=== PATIENT | female | born 1970 | race Two or more races ===

== ENCOUNTER 2018-01-07 03:32 | Emergency (ER) | payer SELFPAY ==
[2018-01-07 04:00] LABS: ADD MAN DIFF? NO
[2018-01-07] MEDS ORDERED: CONTRAST GIVEN MC (04:00)
[2018-01-07] MEDS: IV NORMAL SALINE 1000ML BAG 1,000 ML IV (04:00)
[2018-01-07] MEDS: ONDANSETRON PF 4 MG/2 ML VIAL. IV (04:00)
[2018-01-07] MEDS: fentaNYL PF VIAL 100 MCG/2 ML VIAL IV (04:00)
[2018-01-07 04:03] LABS: BASO # 0.1 x10^3/uL (0.0-0.2); BASO % 1 % (0-3); EOS # 0.3 x10^3/uL (0.0-0.7); EOS % 6 % (0-3); HEMATOCRIT 26.9 % (36.0-47.0); HEMOGLOBIN 8.5 g/dL (12.0-15.5); LYMPH # 1.6 x10^3/uL (1.0-4.8); LYMPH % 32 % (24-48); MEAN CORPUSCULAR HEMOGLOBIN 20 pg (25-35); MEAN CORPUSCULAR HGB CONC 32 g/dL (31-37); MEAN CORPUSCULAR VOLUME 63 fL (79-100); MONO # 0.5 x10^3/uL (0.0-1.1); MONO % 9 % (0-9); NEUT # 2.5 x10^3uL (1.8-7.7); NEUT % 51 % (31-73); PLATELET COUNT 302 x10^3/uL (140-400); RED BLOOD COUNT 4.28 x10^6/uL (3.50-5.40); RED CELL DISTRIBUTION WIDTH 20.9 % (11.5-14.5); WHITE BLOOD COUNT 4.8 x10^3/uL (4.0-11.0)
[2018-01-07 04:12] LABS: ANION GAP 11 (6-14); BLOOD UREA NITROGEN 9 mg/dL (7-20); BUN/CREATININE RATIO 11 (6-20); CALCIUM 8.7 mg/dL (8.5-10.1); CARBON DIOXIDE 24 mmol/L (21-32); CHLORIDE 105 mmol/L (98-107); CREATININE 0.8 mg/dL (0.6-1.0); GFR 77.6; GLUCOSE 164 mg/dL (70-99); POTASSIUM 3.8 mmol/L (3.5-5.1); SODIUM 140 mmol/L (136-145)
[2018-01-07 04:18] LABS: ALBUMIN 3.3 g/dL (3.4-5.0); ALK PHOS 93 U/L (46-116); ALT (SGPT) 30 U/L (14-59); AST (SGOT) 25 U/L (15-37); TOTAL BILIRUBIN 0.4 mg/dL (0.2-1.0); TOTAL PROTEIN 6.6 g/dL (6.4-8.2)
[2018-01-07 04:20] LABS: TROPONINI < 0.017 ng/mL (0.000-0.055)
[2018-01-07] MEDS: IOHEXOL 300 MG/ML 100ML VIAL. IV (04:42)
[2018-01-07 08:58] LABS: PLT ESTIMATE ADEQUATE (ADEQUATE)
[2018-01-07 08:59] LABS: ANISOCYTOSIS PRESENT; HYPOCHROMIA PRESENT; MICROCYTOSIS PRESENT; OVALOCYTES PRESENT; POIKILOCYTOSIS PRESENT; POLYCHROMASIA PRESENT
== END 2018-01-07 06:30 | disposition home or self-care (01) ==
LOC: ER 03:32
DX: M79.602 Pain in left arm (principal); R07.89 Other chest pain; E11.9 Type 2 diabetes mellitus without complications; I10 Essential (primary) hypertension; Z98.51 Tubal ligation status; Z98.61 Coronary angioplasty status
CPT/HCPCS: 36415; 71045; 71275; 80053; 84484; 85025; 93005; 93971; 96361; 96374; 96375; 99285-25; J2405; J3010; J7030; Q9967